=== PATIENT | female | born 1980 | race Caucasian/White ===

== ENCOUNTER 2017-05-05 20:27 | Emergency (ER) | payer BC, OTHER ==
[2017-05-05] MEDS: NS 1,000 ML IV (20:45)
[2017-05-05 20:57] LABS: BASO % 0.2 % (0.0-1.0); EOS # 0.1 10^3/uL (0.0-0.50); EOS % 0.7 % (0.0-3.0); HEMATOCRIT 39.7 % (36.0-47.0); HEMOGLOBIN 13.4 g/dl (12.0-16.0); IMMATURE GRANULOCYTE % 0.3 % (0-3.0); LYMPH # 0.9 10^3/uL (1.5-4.5); LYMPH % 8.9 % (24.0-44.0); MEAN CORPUSCULAR HEMOGLOBIN 30.6 pg (27.0-33.0); MEAN CORPUSCULAR HGB CONC 33.8 g/dl (32.0-36.5); MEAN CORPUSCULAR VOLUME 90.6 fl (80.0-96.0); MONO # 0.5 10^3/uL (0.0-0.8); MONO % 5.6 % (0.0-5.0); NEUTROPHILS # 8.1 10^3/uL (1.8-7.7); NEUTROPHILS % 84.3 % (36.0-66.0); PLATELET COUNT, AUTOMATED 254 10^3/uL (150-450); RED BLOOD COUNT 4.38 10^6/uL (4.00-5.40); RED CELL DISTRIBUTION WIDTH 12.2 % (11.5-14.5); WHITE BLOOD COUNT 9.7 10^3/uL (4.0-10.0)
[2017-05-05 21:17] LABS: CONTROL LINE HCG INT CTR LINE PRESENT; HCG, SERUM QUALITATIVE NEGATIVE (NEGATIVE)
[2017-05-05 21:21] LABS: ALBUMIN 3.8 GM/DL (3.2-5.2); ALBUMIN/GLOBULIN RATIO 1.19 (1.00-1.93); ALKALINE PHOSPHATASE 87 U/L (45-117); ALT/SGPT 17 U/L (12-78); ANION GAP 10 MEQ/L (8-16); AST/SGOT < 3 U/L (7-37); BILIRUBIN,DIRECT 0.1 MG/DL (0.0-0.2); BILIRUBIN,TOTAL 0.5 MG/DL (0.2-1.0); BLOOD UREA NITROGEN 12 MG/DL (7-18); CALCIUM LEVEL 8.1 MG/DL (8.5-10.1); CARBON DIOXIDE LEVEL 22 MEQ/L (21-32); CHLORIDE LEVEL 108 MEQ/L (98-107); CREATININE FOR GFR 0.93 MG/DL (0.55-1.30); GLOMERULAR FILTRATION RATE > 60.0 (>60); GLUCOSE, FASTING 137 MG/DL (70-100); LIPASE 137 U/L (73-393); POTASSIUM SERUM 3.5 MEQ/L (3.5-5.1); SODIUM LEVEL 140 MEQ/L (136-145)
[2017-05-05 22:08] LABS: APPEARANCE, URINE HAZY (CLEAR); BACTERIA, URINE AUTO NEGATIVE (NEGATIVE); BILIRUBIN, URINE AUTO NEGATIVE (NEGATIVE); BLOOD, URINE BLOOD 1+ (NEGATIVE); COLOR, URINE YELLOW (YELLOW); GLUCOSE, URINE (UA) AUTO NEGATIVE (NEGATIVE); KETONE, URINE AUTO NEGATIVE (NEGATIVE); LEUKOCYTE ESTERASE, URINE AUTO NEGATIVE (NEGATIVE); MUCUS, URINE SMALL (NEGATIVE); NITRITE, URINE AUTO NEGATIVE (NEGATIVE); PROTEIN, URINE AUTO NEGATIVE (NEGATIVE); RBC, URINE AUTO 1 /HPF (0-3); SPECIFIC GRAVITY URINE AUTO 1.016 (1.002-1.035); SQUAMOUS EPITHELIAL CELL UR AU 3 /HPF (0-6); WBC, URINE AUTO 1 /HPF (0-3)
[2017-05-05] MEDS: NS 500 ML IV (23:30)
== END 2017-05-06 00:41 | disposition home or self-care (01) ==
LOC: M ED 05-06 00:41
DX: E86.9 Volume depletion, unspecified (principal)
CPT/HCPCS: 83690

== ENCOUNTER → 2017-05-07 | Outpatient (REF) | payer BC, OTHER ==
[2017-05-07 21:13] LABS: ESTIMATED AVERAGE GLUCOSE 114 MG/DL (60-110); HEMOGLOBIN A1c 5.6 %
== END ==
LOC: M SFHCLERA 15:54
DX: R73.02 Impaired glucose tolerance (oral) (principal); R55 Syncope and collapse; R03.0 Elevated blood-pressure reading, without diagnosis of hypertension
CPT/HCPCS: 84443

== ENCOUNTER → 2017-05-21 | Outpatient (REF) | payer BC, OTHER ==
[2017-05-21 17:13] LABS: ALBUMIN/GLOBULIN RATIO 1.43 (1.00-1.93); ALKALINE PHOSPHATASE 88 U/L (45-117); ALT/SGPT 16 U/L (12-78); ANION GAP 6 MEQ/L (8-16); AST/SGOT 5 U/L (7-37); BILIRUBIN,TOTAL 0.5 MG/DL (0.2-1.0); BLOOD UREA NITROGEN 9 MG/DL (7-18); CALCIUM LEVEL 8.9 MG/DL (8.5-10.1); CARBON DIOXIDE LEVEL 27 MEQ/L (21-32); CHLORIDE LEVEL 108 MEQ/L (98-107); CHOLESTEROL LEVEL 181 MG/DL (<200); CHOLESTEROL RISK RATIO 3.415 (<5); CREATININE FOR GFR 0.83 MG/DL (0.55-1.30); GLOMERULAR FILTRATION RATE > 60.0 (>60); GLUCOSE, FASTING 84 MG/DL (70-100); HDL CHOLESTEROL 53 MG/DL (>40); LDL CHOLESTEROL 107.6 MG/DL (<100); NON-HDL-C 128 MG/DL; POTASSIUM SERUM 4.4 MEQ/L (3.5-5.1); SODIUM LEVEL 141 MEQ/L (136-145); TOTAL PROTEIN 6.8 GM/DL (6.4-8.2); TRIGLYCERIDES LEVEL 102 MG/DL (<150)
[2017-05-21 17:34] LABS: MALB URINE SIEMENS 9.5 MG/L; MAU/CREAT RATIO 4.3 MCG/MG (0.0-30.0)
[2017-05-21 17:41] LABS: HEMATOCRIT 40.1 % (36.0-47.0); MEAN CORPUSCULAR HEMOGLOBIN 29.4 pg (27.0-33.0); MEAN CORPUSCULAR HGB CONC 32.4 g/dl (32.0-36.5); MEAN CORPUSCULAR VOLUME 90.7 fl (80.0-96.0); PLATELET COUNT, AUTOMATED 309 10^3/uL (150-450); RED BLOOD COUNT 4.42 10^6/uL (4.00-5.40); RED CELL DISTRIBUTION WIDTH 12.4 % (11.5-14.5); WHITE BLOOD COUNT 9.7 10^3/uL (4.0-10.0)
== END ==
LOC: M SFHCLERA 10:52
DX: I10 Essential (primary) hypertension (principal)

== ENCOUNTER → 2017-05-29 | Outpatient (CLI) | payer BC | LOC: M RAD 07:25 | DX: I10 Essential (primary) hypertension (principal) | CPT/HCPCS: 76775 ==

== ENCOUNTER 2018-12-05 19:24 | Emergency (ER) | payer BC, OTHER ==
[2018-12-05 19:36] VITALS: BP 169/97
[2018-12-05] MEDS ORDERED: IBUPROFEN 600 MG TAB PO ONE (19:45)
[2018-12-05] MEDS ORDERED: IBUP-1022 PO (20:28)
[2018-12-05] MEDS ORDERED: CYCL10TA PO (20:28)
--- NOTE | 2018-12-06 09:52 | REP ---
Right tibia-fibula four views : There is no fracture or dislocation. Mineralization and joint spaces are normal. There are no calcifications or foreign bodies. Impression: Negative right tibia-fibula . Electronically Signed by Jim Beckham MD 12/06/2018 09:44 A
--- NOTE | 2018-12-06 09:53 | REP ---
Right elbow for views : There is no fracture or dislocation. Mineralization and joint spaces are normal. There are no calcifications or foreign bodies. There is an accessory ossicle adjacent to the lateral epicondyle. Impression: Negative right elbow . Electronically Signed by Jim Beckham MD 12/06/2018 09:45 A
--- NOTE | 2018-12-06 09:54 | REP ---
The right shoulder three views : There is no fracture or dislocation. Mineralization and joint spaces are normal. There are no calcifications or foreign bodies. Impression: Negative right shoulder . Electronically Signed by Jim Beckham MD 12/06/2018 09:45 A
== END 2018-12-05 21:04 | disposition home or self-care (01) ==
LOC: M ED 19:24
DX: S40.011A Contusion of right shoulder, initial encounter (principal); S50.01XA Contusion of right elbow, initial encounter; S80.11XA Contusion of right lower leg, initial encounter; V43.62XA Car passenger injured in collision with other type car in traffic accident, initial encounter; Y92.410 Unspecified street and highway as the place of occurrence of the external cause

== ENCOUNTER → 2018-12-31 | Outpatient (REF) | payer BC ==
[~2018-12-31] MED LIST: CYCL10TA PO; IBUP-1022 PO
[2018-12-31 11:38] LABS: BLOOD UREA NITROGEN 12 MG/DL (7-18); CALCIUM LEVEL 8.9 MG/DL (8.5-10.1); CARBON DIOXIDE LEVEL 27 MEQ/L (21-32); CHLORIDE LEVEL 106 MEQ/L (98-107); CREATININE FOR GFR 0.91 MG/DL (0.55-1.30); GLOMERULAR FILTRATION RATE > 60.0 (>60); GLUCOSE, FASTING 95 MG/DL (70-100); POTASSIUM SERUM 4.2 MEQ/L (3.5-5.1); SODIUM LEVEL 139 MEQ/L (136-145)
[2018-12-31 12:00] LABS: HEMOGLOBIN A1c 5.5 %
== END ==
LOC: M SFHCLERA 08:24
PROVIDERS: ATTEND Family Medicine
DX: I10 Essential (primary) hypertension (principal); R73.09 Other abnormal glucose

== ENCOUNTER → 2019-08-19 | Outpatient (REF) | payer BC ==
[~2019-08-19] MED LIST changes: +CYCL-707 PO; -CYCL10TA PO
[2019-08-19 16:51] LABS: BASO % 0.5 % (0.0-1.0); EOS # 0.2 10^3/uL (0.0-0.5); HEMATOCRIT 38.5 % (36.0-47.0); HEMOGLOBIN 12.7 g/dl (12.0-15.5); LYMPH # 1.8 10^3/uL (1.5-5.0); LYMPH % 23.4 % (24.0-44.0); MEAN CORPUSCULAR HEMOGLOBIN 30.5 pg (27.0-33.0); MEAN CORPUSCULAR VOLUME 92.3 fl (80.0-96.0); MONO # 0.6 10^3/uL (0.0-0.8); MONO % 7.7 % (0.0-5.0); NEUTROPHILS % 65.7 % (36.0-66.0); PLATELET COUNT, AUTOMATED 315 10^3/uL (150-450); RED BLOOD COUNT 4.17 10^6/uL (4.00-5.40); WHITE BLOOD COUNT 7.5 10^3/uL (4.0-10.0)
[2019-08-19 17:00] LABS: BLOOD UREA NITROGEN 12 MG/DL (7-18); CALCIUM LEVEL 8.7 MG/DL (8.5-10.1); CARBON DIOXIDE LEVEL 28 MEQ/L (21-32); CHLORIDE LEVEL 107 MEQ/L (98-107); CREATININE FOR GFR 0.89 MG/DL (0.55-1.30); GLOMERULAR FILTRATION RATE > 60.0 (>60); GLUCOSE, FASTING 98 MG/DL (70-100); POTASSIUM SERUM 3.8 MEQ/L (3.5-5.1); SODIUM LEVEL 140 MEQ/L (136-145)
== END ==
LOC: M SFHCLERA 10:02
PROVIDERS: ATTEND Family Medicine
DX: I10 Essential (primary) hypertension (principal); F41.9 Anxiety disorder, unspecified

== ENCOUNTER → 2020-11-10 | Outpatient (CLI) | payer BC ==
[2020-11-10 12:14] LABS: ALBUMIN 3.6 GM/DL (3.2-5.2); ALT/SGPT 20 U/L (12-78); BILIRUBIN,TOTAL 0.4 MG/DL (0.2-1.0); BLOOD UREA NITROGEN 8 MG/DL (7-18); CALCIUM LEVEL 9.2 MG/DL (8.5-10.1); CARBON DIOXIDE LEVEL 28 MEQ/L (21-32); CHLORIDE LEVEL 107 MEQ/L (98-107); CHOLESTEROL LEVEL 188 MG/DL (<200); CHOLESTEROL RISK RATIO 3.418 (<5); GLOMERULAR FILTRATION RATE > 60.0 (>58); GLUCOSE, FASTING 103 MG/DL (70-100); HDL CHOLESTEROL 55 MG/DL (>40); LDL CHOLESTEROL 110 MG/DL (<100); NON-HDL-C 133 MG/DL; SODIUM LEVEL 139 MEQ/L (136-145); TOTAL PROTEIN 6.6 GM/DL (6.4-8.2); TRIGLYCERIDES LEVEL 115 MG/DL (<150)
[2020-11-10 13:55] LABS: HEPATITIS C VIRUS ABY INDEX < 0.0 INDEX (<0.8); HIV 1&2 SCREEN CENTAUR NEGATIVE (NEGATIVE)
== END ==
LOC: M WUC 09:19
PROVIDERS: ATTEND Family Medicine
DX: Z11.4 Encounter for screening for human immunodeficiency virus [HIV] (principal); Z11.59 Encounter for screening for other viral diseases; Z13.220 Encounter for screening for lipoid disorders

== ENCOUNTER → 2020-11-15 | Outpatient (REF) | payer BC | LOC: M SFHCLERA 19:04 | PROVIDERS: ATTEND Family Medicine | DX: Z12.4 Encounter for screening for malignant neoplasm of cervix (principal) ==

== ENCOUNTER → 2021-04-14 | Outpatient (CLI) | payer BC ==
[~2021-04-14] MED LIST changes: +AMLO1TAB25; +HYDR12CA; +L-FO500T PO; +LEXA1TAB; +OMEP40CA5
== END ==
LOC: M LABSMTC 11:27
PROVIDERS: ATTEND Anesthesiology
DX: Z01.812 Encounter for preprocedural laboratory examination (principal); Z20.822 Contact with and (suspected) exposure to COVID-19

== ENCOUNTER 2021-04-19 08:58 | Day surgery (SDC) | payer BC ==
[~2021-04-19] VITALS: Ht 154.9 cm; Wt 93.9 kg
[~2021-04-19 08:58] MED LIST changes: +NS 1,000 ML IV ONE
[2021-04-19] MEDS ORDERED: propofoL 200 MG/20 ML VIAL As Ordered ONE (10:48)
[2021-04-19] MEDS ORDERED: LIDOCAINE 2% 100MG/5ML SDV (FOR ANES.) As Ordered ONE (10:48)
[2021-04-19 11:19] VITALS: BP 120/76
== END 2021-04-19 11:21 | disposition home or self-care (01) ==
LOC: M OPP 08:58
PROVIDERS: ATTEND Surgery
DX: K31.7 Polyp of stomach and duodenum (principal); R10.13 Epigastric pain; Z79.899 Other long term (current) drug therapy

== ENCOUNTER → 2022-10-19 | Outpatient (CLI) | payer BC ==
[~2022-10-19] MED LIST changes: -NS 1,000 ML IV ONE
[2022-10-19 13:23] LABS: HEMOGLOBIN A1c 5.7 % (4.0-6.0)
[2022-10-19 13:39] LABS: ALBUMIN 3.6 G/DL (3.2-5.2); ALKALINE PHOSPHATASE 92 U/L (46-116); ALT/SGPT 13 U/L (7.0-40); AST/SGOT < 8 U/L (<34); BILIRUBIN,TOTAL 0.4 MG/DL (0.3-1.2); BLOOD UREA NITROGEN 10 MG/DL (9-23); CALCIUM LEVEL 8.9 MG/DL (8.5-10.1); CARBON DIOXIDE LEVEL 28 MMOL/L (20-31); CHLORIDE LEVEL 106 MMOL/L (98-107); CHOLESTEROL LEVEL 182 MG/DL (<200); CHOLESTEROL RISK RATIO 3.51 (<5); CREATININE FOR GFR 0.85 MG/DL (0.55-1.30); GLOMERULAR FILTRATION RATE > 60.0 (>58); GLUCOSE, FASTING 93 MG/DL (60-100); HDL CHOLESTEROL 51.8 MG/DL (>40); LDL CHOLESTEROL 112.6 MG/DL (<100); NON-HDL-C 130.2 MG/DL; POTASSIUM SERUM 4.1 MMOL/L (3.5-5.1); SODIUM LEVEL 140 MMOL/L (136-145); TOTAL PROTEIN 6.5 G/DL (5.7-8.2); TRIGLYCERIDES LEVEL 88 MG/DL (<150)
== END ==
LOC: M WUC 10:26
PROVIDERS: ATTEND Family Medicine
DX: E66.9 Obesity, unspecified (principal); I10 Essential (primary) hypertension

== ENCOUNTER → 2023-04-02 | Outpatient (CLI) | payer BC | LOC: M WHC 12:53 | PROVIDERS: ATTEND Nurse Practitioner Family | DX: Z12.31 Encounter for screening mammogram for malignant neoplasm of breast (principal) ==

== ENCOUNTER → 2023-04-02 | Outpatient (REF) | payer BC | LOC: M SFHCWAGY 17:48 | PROVIDERS: ATTEND Nurse Practitioner Family | DX: Z12.4 Encounter for screening for malignant neoplasm of cervix (principal); Z11.51 Encounter for screening for human papillomavirus (HPV) ==

== ENCOUNTER → 2023-04-08 | Outpatient (CLI) | payer BC | LOC: M WHC 12:31 | PROVIDERS: ATTEND Nurse Practitioner Family | DX: Z12.31 Encounter for screening mammogram for malignant neoplasm of breast (principal) ==

== ENCOUNTER → 2023-04-29 | Outpatient (CLI) | payer BC | LOC: M WHC 08:39 | PROVIDERS: ATTEND Nurse Practitioner Family | DX: N93.9 Abnormal uterine and vaginal bleeding, unspecified (principal) ==

== ENCOUNTER 2023-10-18 07:19 | Day surgery (SDC) | payer BC ==
[~2023-10-18] VITALS: Ht 154.9 cm; Wt 90.4 kg
[~2023-10-18 07:19] MED LIST changes: -AMLO1TAB25; +AMLO1TAB25 PO; +FAMO40TA3 PO; -HYDR12CA; +HYDR12CA PO; -LEXA1TAB; +LEXA1TAB PO; +MULTTAB57 PO; -OMEP40CA5; +OMEP40CA5 PO
[2023-10-18] MEDS ORDERED: MIDAZOLAM INJ 2MG/2ML VIAL As Ordered ONE (07:58)
[2023-10-18 07:59] LABS: HEMATOCRIT 29.8 % (36.0-47.0); HEMOGLOBIN 8.7 g/dl (12.0-15.5); MEAN CORPUSCULAR HEMOGLOBIN 21.2 pg (27.0-33.0); MEAN CORPUSCULAR HGB CONC 29.2 g/dl (32.0-36.5); MEAN CORPUSCULAR VOLUME 72.7 fl (80.0-96.0); PLATELET COUNT, AUTOMATED 379 10^3/uL (150-450); WHITE BLOOD COUNT 8.7 10^3/uL (4.0-10.0)
[2023-10-18] MEDS ORDERED: fentaNYL 100 MCG/2 ML INJECTION As Ordered ONE (07:59)
[2023-10-18] MEDS ORDERED: LIDOCAINE 2% 100MG/5ML SDV (FOR ANES.) As Ordered ONE (07:59)
[2023-10-18] MEDS ORDERED: propofoL 500 MG/50 ML VIAL As Ordered ONE (08:03)
[2023-10-18] MEDS ORDERED: ONDANSETRON 4MG 2ML VIAL As Ordered ONE (08:03)
[2023-10-18] MEDS ORDERED: KETOROLAC 60MG 2ML VIAL As Ordered ONE (08:03)
[2023-10-18] MEDS ORDERED: LR 1,000 ML IV SCH (08:25)
[2023-10-18 10:30] VITALS: BP 133/76; TEMP 96.1; O2SAT 97
== END 2023-10-18 10:32 | disposition home or self-care (01) ==
LOC: M SDC 07:19
PROVIDERS: ATTEND Obstetrics & Gynecology
DX: N84.0 Polyp of corpus uteri (principal); I10 Essential (primary) hypertension; K21.9 Gastro-esophageal reflux disease without esophagitis; F32.A Depression, unspecified; F41.9 Anxiety disorder, unspecified
CPT/HCPCS: 36415; 58558; 81025; 85027; 86850; 86900; 86901; 88305; J0665; J1100; J1885; J2250; J2405; J3010

== ENCOUNTER → 2023-11-12 | Outpatient (REF) | payer BC ==
[2023-11-12 17:29] LABS: BASO # 0.1 10^3/uL (0.0-0.2); BASO % 0.9 % (0.0-1.0); EOS # 0.2 10^3/uL (0.0-0.5); EOS % 2.5 % (0.0-3.0); HEMATOCRIT 31.9 % (36.0-47.0); HEMOGLOBIN 9.2 g/dl (12.0-15.5); LYMPH # 2.2 10^3/uL (1.5-5.0); LYMPH % 29.1 % (24.0-44.0); MEAN CORPUSCULAR HGB CONC 28.8 g/dl (32.0-36.5); MEAN CORPUSCULAR VOLUME 72.8 fl (80.0-96.0); MONO # 0.6 10^3/uL (0.0-0.8); MONO % 8.2 % (2.0-8.0); NEUTROPHILS # 4.6 10^3/uL (1.5-8.5); NEUTROPHILS % 58.9 % (36.0-66.0); PLATELET COUNT, AUTOMATED 394 10^3/uL (150-450); RED BLOOD COUNT 4.38 10^6/uL (4.00-5.40); WHITE BLOOD COUNT 7.7 10^3/uL (4.0-10.0)
[2023-11-12 17:51] LABS: ALBUMIN 3.7 G/DL (3.2-5.2); ALKALINE PHOSPHATASE 92 U/L (46-116); ALT/SGPT 18 U/L (7.0-40); AST/SGOT < 8 U/L (<34); BILIRUBIN,TOTAL 0.4 MG/DL (0.3-1.2); BLOOD UREA NITROGEN 11 MG/DL (9-23); CALCIUM LEVEL 8.8 MG/DL (8.5-10.1); CARBON DIOXIDE LEVEL 26 MMOL/L (20-31); CHLORIDE LEVEL 107 MMOL/L (98-107); CHOLESTEROL LEVEL 186 MG/DL (<200); CHOLESTEROL RISK RATIO 4.06 (<5); CREATININE FOR GFR 0.83 MG/DL (0.55-1.30); GLOMERULAR FILTRATION RATE > 60.0 (>58); GLUCOSE, FASTING 105 MG/DL (60-100); HDL CHOLESTEROL 45.8 MG/DL (>40); NON-HDL-C 140.2 MG/DL; POTASSIUM SERUM 4.7 MMOL/L (3.5-5.1); SODIUM LEVEL 138 MMOL/L (136-145); TOTAL PROTEIN 6.7 G/DL (5.7-8.2); TRIGLYCERIDES LEVEL 166 MG/DL (<150)
[2023-11-12 18:44] LABS: HEMOGLOBIN A1c 6.2 % (4.0-6.0)
== END ==
LOC: M SFHCLERA 09:29
PROVIDERS: ATTEND Family Medicine
DX: Z00.00 Encounter for general adult medical examination without abnormal findings (principal)

== ENCOUNTER → 2025-01-05 | Outpatient (REF) | payer OTHER ==
[~2025-01-05] MED LIST changes: +HYDR12.510 PO; -HYDR12CA PO; -IBUP-1022 PO; +IBUP600T42 PO
[2025-01-05 17:24] LABS: BASO # 0.1 10^3/uL (0.0-0.2); BASO % 0.9 % (0.0-1.0); EOS # 0.2 10^3/uL (0.0-0.5); EOS % 2.8 % (0.0-3.0); LYMPH # 2.3 10^3/uL (1.5-5.0); LYMPH % 26.8 % (24.0-44.0); MONO # 0.6 10^3/uL (0.0-0.8); MONO % 6.6 % (2.0-8.0); NEUTROPHILS # 5.3 10^3/uL (1.5-8.5); NEUTROPHILS % 62.5 % (36.0-66.0); PLATELET COUNT, AUTOMATED 493 10^3/uL (150-450)
[2025-01-05 17:30] LABS: ALT/SGPT 10 U/L (7.0-40); AST/SGOT < 8 U/L (<34); CALCIUM LEVEL 8.7 MG/DL (8.5-10.1); CARBON DIOXIDE LEVEL 25 MMOL/L (20-31); CHLORIDE LEVEL 105 MMOL/L (98-107); CHOLESTEROL LEVEL 185 MG/DL (<200); CHOLESTEROL RISK RATIO 3.66 (<5); CREATININE FOR GFR 0.82 MG/DL (0.55-1.30); GLOMERULAR FILTRATION RATE 89.8 (>58); IRON (FE) 17 UG/DL (50-170); LDL CHOLESTEROL 115.5 MG/DL (<100); NON-HDL-C 134.5 MG/DL; PERCENT SATURATION 3.8 % (13.2-45.0); POTASSIUM SERUM 4.2 MMOL/L (3.5-5.1); SODIUM LEVEL 137 MMOL/L (136-145); TRIGLYCERIDES LEVEL 95 MG/DL (<150)
[2025-01-05 17:31] LABS: VITAMIN B12 LEVEL 334 PG/ML (211-911)
[2025-01-05 17:51] LABS: ESTIMATED AVERAGE GLUCOSE 137.0 MG/DL (60-110)
== END ==
LOC: M SFHCLERA 09:11
PROVIDERS: ATTEND Family Medicine
DX: D64.9 Anemia, unspecified (principal); R73.03 Prediabetes